=== PATIENT | female | born 1970 | race Caucasian/White ===

== ENCOUNTER 2023-02-18 15:29 | Emergency (ER) | payer OTHER, SELFPAY ==
[2023-02-18 15:36] VITALS: BP 145/89; PULSE 78; RESP 16; TEMP 36.8; O2SAT 100
--- NOTE | 2023-02-18 16:18 | ED.URI ---
HPI - URI/Sore Throat General Chief Complaint: Upper Respiratory Infection Stated Complaint: Sore Throat Time Seen by Provider: 02/18/23 16:10 Source: patient Mode of arrival: ambulatory Limitations: no limitations History of Present Illness HPI Narrative: Patient is a 52-year-old female that presents with 2 weeks of left ear pain and sore throat. States fever started yesterday. Took Tylenol with relief. Has been taking Benadryl for seasonal allergies. Related Data Allergies Allergy/AdvReac Type Severity Reaction Status Date / Time Penicillins Allergy Severe SWELLING Verified 02/18/23 15:41 Review of Systems Review of Systems: All systems reviewed & are unremarkable except as noted in HPI and below Constitutional: Constitutional: Denies body ache(s), Denies fever(s), Denies headache(s), Denies malaise and Denies weakness Eyes: Eyes: Denies loss of vision ENT: Reports otalgia, Denies headache(s), Denies nasal congestion, Denies sinus pain and Reports sore throat Cardiovascular: Cardiovascular: Denies chest pain, Denies irregular heart rhythm and Denies dyspnea Respiratory: Respiratory: Denies cough and Denies dyspnea Gastrointestinal: Gastrointestinal: Denies abdominal pain, Denies melena, Denies hematochezia, Denies diarrhea, Denies nausea and Denies vomiting Musculoskeletal: Musculoskeletal: Denies back pain, Denies myalgias and Denies arthralgias Integumentary/Breasts: Skin/Breast: Denies pruritus and Denies rash Neurologic: Denies headache(s), Denies loss of vision and Denies weakness Psychiatric: Psychiatric: Reports no additional psychiatric complaints PMFSH Comments At time of signature, agree with nursing past medical, surgical, social and family history. There is no relevant family history pertinent to the presenting complaint. Exam Const: General: cooperative, healthy appearing, comfortable, no acute distress and well nourished Nutritional Appearance: well nourished Orientation/consciousness: patient oriented x3 Limitations: no limitations HENMT: Head: normal to inspection, normocephalic and atraumatic Ears: hearing grossly normal bilaterally, external ears normal and TM's normal bilaterally Face/Nose/Sinus: Normal external nose present, Normal nares present, Normal nasal mucous membranes and turbinates present, Normal septum present, normal facial exam, sinuses nontender and face symmetric Face and sinus: normal facial exam, sinuses nontender and face symmetric Mouth: Yes Normal oral and palatal mucosa present, Yes lip normal and Yes moist mucous membranes Teeth and gingiva: dentition normal Throat: uvula midline, abnormal tonsil bilateral erythema, exudates and hypertrophy 2+, posterior oropharynx abnormal edema, erythema and exudates and postnasal drainage Eyes: General: appearance normal, both eyes and all related structures Alignment and Position: alignment normal and position normal Periorbital: periorbital findings normal Eyelids: eyelids normal Pupils: Equal, round and reactive pupils present Neck: Neck: normal visual inspection, full ROM and supple Chest: Chest palpation & inspection: normal inspection of the chest and normal palpation of entire chest wall Resp: Effort & Inspection: normal respiratory effort and able to speak in complete sentences Auscultation: clear to auscultation bilaterally, no crackles, no rales, no rhonchi and no wheezes Cardio: Rate: regular rate Rhythm: regular rhythm Heart sounds: S1 normal heart sound present and S2 normal heart sound present GI: Inspection: normal to inspection Skin: General skin exam: normal color and no rashes or lesions noted Neuro: General: patient oriented x3 and moves all extremities Cranial nerves: Yes Equal, round and reactive pupils present Speech: normal speech Gait exam (Neuro): Normal gait present Extrem: General: normal to inspection, full ROM and no edema Psych: Appearance: grossly normal and well kempt Mental Status: men
== END 2023-02-18 16:31 | disposition home or self-care (01) ==
PROVIDERS: Emergency Provider Nurse Practitioner Family; PCP Emergency Medicine
DX: J02.0 Streptococcal pharyngitis (principal)
CPT/HCPCS: 87880; 99213; G0463

== ENCOUNTER 2023-03-12 12:39 | Emergency (ER) | payer OTHER, SELFPAY ==
[2023-03-12 12:52] VITALS: BP 141/83; PULSE 60; RESP 18; TEMP 36.3; O2SAT 100
--- NOTE | 2023-03-12 13:25 | ED.GENADULT ---
HPI - General Adult General Chief complaint: Upper Respiratory Infection Stated complaint: Sore Throat Source: patient Mode of arrival: ambulatory Limitations: no limitations History of Present Illness HPI narrative: patient presents for evaluation of sore throat for the last 1.5 months. She was evaluated here on 02/18/23 and tested positive for strep. She was given azithromycin, which she took as directed. She did not improve clinically. She denies fever, chills, nausea, vomiting, cough, shortness of breath. No recent sick contacts. She has tried OTC cough medication. She smokes 1/2 ppd. She has underlying environmental allergies. Related Data Home Medications Medication Instructions Recorded Confirmed No Home Medications 03/12/23 03/12/23 Allergies Allergy/AdvReac Type Severity Reaction Status Date / Time Penicillins Allergy Severe SWELLING Verified 03/12/23 12:51 Review of Systems Review of Systems: CONSTITUTIONAL: Denies fever, chills, or sweats. EYES: Denies visual changes, redness, or discharge. ENT: Reports sore throat. Denies rhinorrhea, congestion, or otalgia. CARDIOVASCULAR: Denies chest pain, palpitations, or edema. RESPIRATORY: Denies cough or dyspnea. GASTROINTESTINAL: Denies abdominal pain, nausea, vomiting, or diarrhea. GENITOURINARY: Denies dysuria or hematuria. SKIN: Denies rash or itching. MUSCULOSKELETAL: Denies back pain, joint pain, or myalgia. NEUROLOGIC: Denies headache, numbness, dizziness, or weakness. PSYCHIATRIC: Denies anxiety or depression. [facility] Past Medical History Medical History No pertinent past medical history Surgical History Surgical History No pertinent past surgical history Family History Family History Mother Family history non-contributory Social History Social History Smoking packs per day: 0.5 Smoking cigarettes per day: 10.0 Smoking status: Current every day smoker Gender identity (if verbalized by the patient): Female Spiritual care concerns: No Exam Narrative: GENERAL: Well-appearing, well-nourished, and in no acute distress. HEAD: Normocephalic, atraumatic. EYES: PERRLA and EOMI. ENT: Nares clear, no rhinorrhea or epistaxis. Mucous membranes moist. there is mild posterior pharyngeal erythema without exudate. Uvula is midline. Bilateral TMs pearly duke nonbulging NECK: Supple. No adenopathy or masses. No carotid bruits or JVD CHEST: Clear to auscultation. No respiratory distress. No wheezes rales or rhonchi HEART: Regular rate and rhythm. No murmur heard. Normal peripheral pulses. ABDOMEN: Soft, nontender, nondistended, normal active bowel sounds. EXTREMITIES: Normal range of motion. No edema. SKIN: Warm, dry, no rash. NEURO: No focal deficits. Alert and oriented x3. PSYCH: Normal mood and affect. Course Course Emergency Course: this is a 52-year-old female who presented for evaluation of sore throat. She was recently seen here and treated for strep pharyngitis with azithromycin. Repeat strep today negative. Likely viral/ allergy in origin. She will purchase Cepacol lozenges [id number]. Allergy medication and ibuprofen may help. Follow up with primary provider. Go to the ER for worsening symptoms. Patient in agreement with plan of care Level of Care: Express Care Visit Vital Signs Vital signs: Vital Signs Temperature 36.3 C L 03/12/23 12:52 Pulse Rate 60 03/12/23 12:52 Respiratory Rate 18 03/12/23 12:52 Blood Pressure 141/83 H 03/12/23 12:52 Pulse Oximetry 100 03/12/23 12:52 Oxygen Delivery Room Air 03/12/23 12:52 Temperature 36.3 C L 03/12/23 12:52 Pulse Rate 60 03/12/23 12:52 Respiratory Rate 18 03/12/23 12:52 Blood Pressure 141/83 H 03/02
== END 2023-03-12 13:28 | disposition home or self-care (01) ==
PROVIDERS: Emergency Provider Nurse Practitioner
DX: J02.9 Acute pharyngitis, unspecified (principal); F17.210 Nicotine dependence, cigarettes, uncomplicated
CPT/HCPCS: 87081; 87880; 99213; G0463

== ENCOUNTER 2024-10-17 11:46 | Emergency (ER) | payer SELFPAY ==
[2024-10-17 12:00] VITALS: BP 151/77; PULSE 72; RESP 16; TEMP 36; O2SAT 99
--- NOTE | 2024-10-17 12:01 | ED_ITS ---
HPI - URI/Sore Throat General Chief Complaint: Upper Respiratory Infection Stated Complaint: swelling /pain in throat, ear pain Time Seen by Provider: 10/17/24 12:01 Source: patient, RN notes reviewed and old records reviewed Mode of arrival: ambulatory Limitations: no limitations History of Present Illness HPI Narrative: Patient who admits to history of seasonal allergies, not taking any medication for same because she says not fit works for her, presents with complaints of ear and throat pain for 2 weeks. She does report that she has had some runny nose as well. She has been taking Tylenol intermittently with poor results. She is able to bandage own secretions. No drooling or stridor. Denies any injury or trauma. Denies any fever, chills, sweats Related Data Home Medications Medication Instructions Recorded Confirmed No Home Medications 03/12/23 10/17/24 Allergies Allergy/AdvReac Type Severity Reaction Status Date / Time Penicillins Allergy Severe SWELLING Verified 10/17/24 11:56 Review of Systems Review of Systems: All systems reviewed & are unremarkable except as noted in HPI and below Constitutional: Constitutional: Reports no additional constitutional c omplaints ENT: Reports system reviewed and no additional complaints, except as documented, Reports as per HPI, Reports otalgia, Reports nasal congestion, Reports nasal discharge, Denies sinus pain, Denies sinus pressure and Reports sore throat Cardiovascular: Cardiovascular: Reports no additional cardiovascular com plaints Respiratory: Respiratory: Reports as per HPI, Reports no additional respiratory complaints, Denies chest congestion and Denies cough Gastrointestinal: Gastrointestinal: Reports no additional gastrointestinal complaints [facility] Past Medical History Medical History No pertinent past medical history Surgical History Surgical History No pertinent past surgical history Family History Family History Mother Family history non-contributory Social History Social History Smoking packs per day: 0.5 Smoking cigarettes per day: 10.0 Smoking status: Current every day smoker Gender identity (if verbalized by the patient): Female Spiritual care concerns: No Comments At the time of my signature, I reviewed and agree with the nursing past medical, surgical, social, and family history. There is no relevant family history pertinent to the patient complaint. Exam Const: General: cooperative, no acute distress, alert and awake Orientation/consciousness: oriented to person, oriented to place and oriented to time HENMT: Head: normal to inspection Ears: TM's normal bilaterally Face/Nose/Sinus: No nasal discharge present Mouth: Yes moist mucous membranes Throat: posterior oropharynx abnormal erythema; no exudates and postnasal drainage Resp: Effort & Inspection: normal respiratory effort and able to speak in complete sentences Auscultation: clear to auscultation bilaterally, no crackles, no rales, no rhonchi and no wheezes Cardio: Palpation: normal PMI Rate: regular rate Rhythm: regular rhythm Heart sounds: S1 normal heart sound present and S2 normal heart sound present Neuro: General: oriented to person, oriented to place and oriented to time Cranial nerves: Yes CN's II-XII intact bilaterally Psych: Appearance: grossly normal Thought process: Normal thought process present Insight: Good insight present (Psych) Judgement: Good judgement present (Psych) Course Course Level of Care: Express Care Visit Vital Signs Vital signs: Vital Signs Temperature 96.8 F L 10/17/24 12:00 Pulse Rate 72 10/17/24 12:00 Respiratory Rate 16 10/17/24 12:00 Blood Pressure 151/77 H 10/17/24 12:00 Pulse Oximetry 99 10/17/24 12:00 Oxygen Delivery Room Air 10/17/24 12:00 Temperature 96.8 F L 10/17/24 12:00 Pulse Rate 72 10/17/24 12:00 Respiratory Rate 16 10/17/24 12:00 Blood Pressure 151/77 H 10/17/24 12:00 Pulse Oximetry 99 10/17/24 12:00 Oxygen Delivery Room Air 10/17/24 12:00 Reviewed MDM - URI/Sore Throat MDM Narrative Medical decision making narrative: Negative rapid strep, culture pending. Patient advised to use [id number] allergy medications. Follow with primary care provider. Emergency department for new or worse symptoms. Discharge instructions reviewed with patient, as well as provided in writing per nursing staff. The instructions also include specific and strict return/GO TO THE ER as well as f/u information. All questions have been answered, and the patient deny any further questions with discharge and discharge plan. Some parts of this dictation were generated by voice recognition software and may contain typographical and/or grammatical inaccuracies. Differential Diagnosis Differential diagnosis: Likely upper respiratory infection, otitis media and pharyngitis Medical Records Attestation: I reviewed the patient's medical records. Discharge Plan Discharge Clinical Impression: Elevated blood pressure reading Upper respiratory infection Qualifiers: URI type: unspecified viral URI Qualified Code(s): J06.9 - Acute upper respiratory infection, unspecified Patient Disposition: Home, Self-Care Condition: Stable Instructions: Antibiotic Form Additional Instructions: Please follow-up with primary care provider. Blood pressure today is elevated at 150 1/77. Normal blood pressure is 120/80. There are multiple [id number] allergy medications that may help with your symptoms. Please choose 1 and follow package instructions. Go to emergency department with any new or worse symptoms Patient Language: Kenyan Prescriptions: No Action No Home Medications Follow-up/Referrals: PHYSICIAN,SENIOR CLINICAL [employer] PROGRAMMER [Primary Care Provider] - 2 Weeks Time of Disposition: 12:23
[2024-10-19 10:03] LABS: EDSTREPNEGPOS1 Negative (Negative)
== END 2024-10-17 12:29 | disposition home or self-care (01) ==
PROVIDERS: Emergency Provider Nurse Practitioner Family
DX: R03.0 Elevated blood-pressure reading, without diagnosis of hypertension (principal); J06.9 Acute upper respiratory infection, unspecified; F17.210 Nicotine dependence, cigarettes, uncomplicated
CPT/HCPCS: 87081; 87880; 99213; G0463